=== PATIENT | male | born 1965 | race Caucasian/White ===

== ENCOUNTER → 2020-06-22 | Outpatient (CLI) | payer BC ==
--- NOTE | 2020-06-22 10:24 | XR ---
EXAMINATION TYPE: XR shoulder complete BILAT DATE OF EXAM: 06/22/2020 CLINICAL HISTORY: Chronic bilateral pain. TECHNIQUE: Three views of the bilateral shoulders are obtained. COMPARISON: Right shoulder x-ray December 28, 2015. FINDINGS: Right shoulder redemonstrates tiny 2 mm ossific cortical fragment inferior glenoid. Mild to moderate glenohumeral joint narrowing is redemonstrated and stable. Acromioclavicular joint is prese rved. Distal acromion morphology unremarkable. Left shoulder shows [id number] glenohumeral joint narrowing. Acromioclavicular joint is [place]. Distal acromion morphology unremarkable. Curvilinear calcification superior lateral humeral head could reflect a distal calcific tendinitis of the rotator cuff tendons. Visualized ribs are intact bilaterally. IMPRESSION: As above.
== END | disposition home or self-care (01) ==
LOC: RADXRYALE 09:57
PROVIDERS: ATTEND Family Medicine
DX: M19.011 Primary osteoarthritis, right shoulder (principal); M19.012 Primary osteoarthritis, left shoulder

== ENCOUNTER → 2020-07-07 | Outpatient (CLI) | payer BC ==
[2020-07-07 08:18] LABS: African American GFR (CKD) >90 (>60 ml/min/1.73 sqM); Blood Urea Nitrogen 20 mg/dL (9-20); Non-African American GFR(CKD) >90 (>60 ml/min/1.73 sqM)
--- NOTE | 2020-07-07 10:15 | CT ---
EXAMINATION TYPE: CT cervical spine w con DATE OF EXAM: 07/07/2020 COMPARISON: None HISTORY: cervical pain, Lt shoulder pain CT DLP: 841 mGycm CONTRAST: Performed with IV Contrast, patient injected with 100 mL of Isovue 300. CT of the cervical spine is performed in the axial plane at 2 mm thick sections. Reconstructed image s in the coronal, and sagittal plane are reviewed on the computer. No acute fractures are evident. Vertebral body alignment is normal. Mild diffuse disc space narrowing is present. Vertebral body heights are preserved. No spinal canal stenosis is evident C2-C3: Uncovertebral joint hypertrophy is present with mild left foraminal stenosis. C3-4: Uncovertebral joint hypertrophy is present with severe right and moderate left foraminal stenos is. C4-5: Right facet degenerative changes are present. Uncovertebral joint hypertrophy is present with m oderate bilateral foraminal stenosis. C5-6: Mild right foraminal stenosis from uncovertebral joint hypertrophy is present IMPRESSIONS: 1. Uncovertebral joint hypertrophy contributing to foraminal stenosis seen C2-C3 to C5-C6 discussed above 2. Mild diffuse disc narrowing.
== END | disposition home or self-care (01) ==
LOC: RADCTMAIN 07:41
PROVIDERS: ATTEND Family Medicine
DX: M50.321 Other cervical disc degeneration at C4-C5 level (principal); M99.71 Connective tissue and disc stenosis of intervertebral foramina of cervical region
CPT/HCPCS: 82565; 84520; 72126; 36415; Q9967

== ENCOUNTER → 2023-06-26 | Outpatient (CLI) | payer BC ==
--- NOTE | 2023-06-27 13:57 | MR ---
EXAMINATION TYPE: MR cervical spine wo con DATE OF EXAM: 06/26/2023 COMPARISON: Neck pain radiating into shoulders HISTORY: Neck pain into both shoulders, Bilateral Arm Numbness CONTRAST: Performed utilizing 0 mL intravenous Gadavist gadolinium contrast. TECHNIQUE: Multiplanar multiecho imaging on a 3.0 Sarah Beth magnet is performed through the cervical spin e. FINDINGS: The craniovertebral junction is normal. Vertebral body alignment is normal. There is charlette e mild disc space narrowing C6-7. C7-T1: No focal disc herniation or significant disc bulge is evident. No spinal canal stenosis or n eural foraminal stenosis is present. C6-7: Broad-based disc bulges mild anterior thecal sac compression. No cord contact is evident. No AP spinal canal stenosis is present. Uncovertebral joint hypertrophy is present with some foraminal lb nosis present bilaterally.. C5-6: Mild disc bulging is present no cord contact is evident. No spinal canal stenosis. Uncovertebra l joint hypertrophy has a lateral foraminal stenosis.. C4-5: Some minimal subligamentous disc extension may be present. No AP spinal canal stenosis or cord contact is evident.. C3-4: No focal disc herniation or significant disc bulge is evident. No spinal canal stenosis or oswaldo ral foraminal stenosis is present. C2-3: No focal disc herniation or significant disc bulge is evident. No spinal canal stenosis or oswaldo ral foraminal stenosis is present. IMPRESSION: 1. Subligamentous disc herniation C3-4 C4-5 and C5-6. 2. Disc bulging at C5-6 is the greatest without cord contact or spinal canal stenosis. 3. Foraminal narrowing present C3-4 through C6-7.
== END | disposition home or self-care (01) ==
LOC: RADMRIMAIN 13:56
PROVIDERS: ATTEND Family Medicine
DX: M50.322 Other cervical disc degeneration at C5-C6 level (principal); M50.10 Cervical disc disorder with radiculopathy, unspecified cervical region; M50.21 Other cervical disc displacement, high cervical region; M48.02 Spinal stenosis, cervical region
CPT/HCPCS: 72141

== ENCOUNTER → 2024-01-07 | Outpatient (CLI) | payer BC ==
--- NOTE | 2024-01-08 12:47 | MR ---
EXAMINATION TYPE: MR thoracic spine wo con DATE OF EXAM: 01/07/2024 8:40 PM COMPARISON: None. 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 IV Contrast: mL (None, if empty) FINDINGS: Spinal cord maintains normal signal through its visualized course. Vertebral body alignment is normal. Vertebral body heights are preserved. Disc heights are preserved. There is a small central disc herniation at T6-7. This is mild anterior thecal sac compression. Cord contact is present. No cord deformity or spinal canal stenosis. Disc hydration levels are preserved. No spinal canal stenosis is evident. IMPRESSION: 1. Small central disc herniation T6-7 with cord contact without deformity. No spinal canal stenosis. [facility], , 01/08/2024 12:45 PM
== END | disposition home or self-care (01) ==
LOC: RADMRIMAIN 18:58
PROVIDERS: ATTEND Physical Medicine & Rehabilitation
DX: M48.02 Spinal stenosis, cervical region (principal); M51.15 Intervertebral disc disorders with radiculopathy, thoracolumbar region; M50.123 Cervical disc disorder at C6-C7 level with radiculopathy; M47.24 Other spondylosis with radiculopathy, thoracic region; M43.12 Spondylolisthesis, cervical region; M47.812 Spondylosis without myelopathy or radiculopathy, cervical region; G56.01 Carpal tunnel syndrome, right upper limb; G56.02 Carpal tunnel syndrome, left upper limb; M25.511 Pain in right shoulder
CPT/HCPCS: 72146